=== PATIENT | female | born 1985 | race Caucasian/White ===

== ENCOUNTER → 2017-03-29 | Day surgery (SDC) | payer BC ==
[~2017-03-29] MED LIST: DEXAMETHASONE 4 MG/ML VIAL ONE; HYDROCODONE/APAP 5/325 TAB PO PRN; KETOROLAC 30 MG/1 ML SDV ONE; LIDOCAINE 2% 5 ML SDV ONE; MISOPROSTOL 200 MCG TAB ONE; NALOXONE HCL 0.4 MG/ML INJ IVP PRN; ONDANSETRON 4 MG/2 ML VIAL IVP PRN; ONDANSETRON 4 MG/2 ML VIAL ONE; PROPOFOL/EMULSION 500 MG/50 ML BOTTLE IV ONE; fentaNYL 100 MCG/2 ML INJ IVP PRN; fentaNYL 100 MCG/2 ML INJ ONE
--- NOTE | 2017-03-29 09:47 | PDANEPAE ---
ANE History of Present Illness Missed Ab. ANE Past Medical History - Cardiovascular History Hx Hypertension: No Hx Arrhythmias: No Hx Chest Pain: No Hx Coronary Artery / Peripheral Vascular Disease: No Hx CHF / Valvular Disease: No Hx Palpitations: No - Pulmonary History Hx COPD: No Hx Asthma/Reactive Airway Disease: No Hx Recent Upper Respiratory Infection: No Hx Oxygen in Use at Home: No - Endocrine History Hx Diabetes: No Hypothyroid: No Hyperthyroid: No - Chronic Pain History Chronic Pain: No ANE Review of Systems Review of systems is: negative ANE Patient History - Allergies Allergies/Adverse Reactions: No Known Allergies Allergy (Unverified 08/21/14 18:27) - NPO status NPO Since - Liquids (Date): 03/29/17 NPO Since - Liquids (Time): 00:00 NPO Since - Solids (Date): 03/29/17 NPO Since - Solids (Time): 00:00 - Anes Hx Anes Hx: no prior problems - Smoking Hx Smoking Status: Never smoked Marijuana use: No - Alcohol Use Alcohol Use: Rarely - Family Anes Hx Family Anes Hx: neg - N/A ANE Labs/Vital Signs - Vital Signs Height: 175.26 cm Weight: 61.235 kg ANE Physical Exam - Airway Neck exam: FROM Mallampati Score: Class 1 Mouth exam: normal dental/mouth exam - Pulmonary Pulmonary: no respiratory distress - Cardiovascular Cardiovascular: regular rate and rhythym - ASA Status ASA Status: I ANE Anesthesia Plan Anesthesia Plan: GA with mask
--- NOTE | 2017-03-29 09:49 | POSTANESTH ---
Post Anesthetic Evaluation Cardiovascular Status: Normal, Stable, Similar to Pre-Op Cond Respiratory Status: Normal, Stable, Similar to Pre-op Cond. Level of Consciousness/Mental Status: Can Participate in Eval, Alert and Oriented Pain Control: Adequate, Prn Tx Ordered Nausea/Vomiting Control: Adequate, Prn Tx Ordered Complications Possibly Related to Anesthesia: None Noted
--- NOTE | 2017-03-29 10:48 | GOP ---
[f rep st] OPERATIVE REPORT DATE OF OPERATION: 03/29/2017 SURGEON: Jessica Rondon MD PRISON WARDEN: None. ANESTHESIA: Monitored anesthesia care. PREOPERATIVE DIAGNOSIS: Anembryonic at 6 weeks. POSTOPERATIVE DIAGNOSIS: Anembryonic at 6 weeks. PROCEDURE PERFORMED: Suction dilatation and curettage. FINDINGS: anembryonic SPECIMENS: Products of conception. ESTIMATED BLOOD LOSS: Less than 10 mL. INDICATIONS: The patient is a 31-year-old, G 5, P 3013 female who presents for dilation and curettage for anembryonic . DESCRIPTION OF PROCEDURE: The patient was taken the operating room. She was prepped and draped in normal sterile fashion in the dorsal lithotomy position. A surgical time-out was performed verifying the patient's name, date of , planned procedure, and site. The patient had a bivalve speculum placed in her vagina. The anterior aspect of the cervix was grasped with atraumatic tenaculum. The patient received a paracervical block of 1% lidocaine. The cervix was dilated to 7 mm. A curved suction curette was placed into the uterine canal, and the contents were aspirated until a sharp gritty endometrial texture was noted. Sharp curettage took place. EBL was less than 10 mL. The tenaculum was removed. Hemostasis was obtained. The bivalve speculum was removed. All counts correct x2. COMPLICATIONS: None. OUTCOME: Stable to recovery room. /[id number]/MODL MTDD
== END | disposition home or self-care (01) ==
LOC: FSGY 06:15 → FOBOP 06:15 → EDSTATUS 08:15
PROVIDERS: ATTEND Obstetrics & Gynecology
PROC: 10D17ZZ Extraction of Products of Conception, Retained, Via Natural or Artificial Opening (ICD-10-PCS; principal; 2017-03-29)
DX: O02.0 Blighted ovum and nonhydatidiform mole (principal)
CPT/HCPCS: J1100; J1885; J2405; J2704; J3010

== ENCOUNTER → 2017-09-24 | Outpatient (CLI) | payer BC | LOC: FIMAGING 07:17 | DX: Z34.81 Encounter for supervision of other normal pregnancy, first trimester (principal); Z3A.01 Less than 8 weeks gestation of pregnancy ==

== ENCOUNTER → 2017-12-24 | Outpatient (CLI) | payer BC | LOC: FIMAGING 09:09 | PROVIDERS: ATTEND Advanced Practice Midwife | DX: Z34.82 Encounter for supervision of other normal pregnancy, second trimester (principal); Z3A.19 19 weeks gestation of pregnancy ==

== ENCOUNTER → 2018-08-12 | Outpatient (CLI) | payer BC | LOC: BMCIMAGING 16:41 | PROVIDERS: ATTEND Internal Medicine | DX: J98.09 Other diseases of bronchus, not elsewhere classified (principal) ==

== ENCOUNTER → 2019-02-12 | Outpatient (CLI) | payer BC | LOC: BMCIMAGING 10:22 | PROVIDERS: ATTEND Internal Medicine | DX: M54.6 Pain in thoracic spine (principal) ==

== ENCOUNTER → 2019-02-13 | Outpatient (CLI) | payer BC | LOC: BMCIMAGING 16:51 | PROVIDERS: ATTEND Internal Medicine | DX: M48.54XA Collapsed vertebra, not elsewhere classified, thoracic region, initial encounter for fracture (principal) ==